=== PATIENT | male | born 1955 | race Caucasian/White ===

== ENCOUNTER → 2018-12-26 | Outpatient (REF) | LOC: M LAB LCGH 11:13 | PROVIDERS: ATTEND Family Medicine | DX: Z00.00 Encounter for general adult medical examination without abnormal findings (principal) ==

== ENCOUNTER → 2021-05-09 | Outpatient (REF) | payer MEDICARE | LOC: M LAB REF 16:48 | PROVIDERS: ATTEND Nurse Practitioner Family | DX: E83.42 Hypomagnesemia (principal) ==

== ENCOUNTER → 2021-09-10 | Outpatient (REF) | payer MEDICARE | LOC: M LAB REF 16:39 | PROVIDERS: ATTEND Nurse Practitioner Family | DX: E83.42 Hypomagnesemia (principal) ==

== ENCOUNTER → 2022-01-21 | Outpatient (REF) | payer MEDICARE | LOC: M LAB REF 16:43 | PROVIDERS: ATTEND Nurse Practitioner Family | DX: N40.0 Benign prostatic hyperplasia without lower urinary tract symptoms (principal) ==

== ENCOUNTER → 2023-08-31 | Outpatient (REF) | payer MEDICARE | LOC: M LAB REF 17:29 | PROVIDERS: ATTEND Nurse Practitioner Family | DX: N40.1 Benign prostatic hyperplasia with lower urinary tract symptoms (principal); R97.20 Elevated prostate specific antigen [PSA] ==